=== PATIENT | female | born 1990 | race Caucasian/White ===

== ENCOUNTER 2017-04-22 15:50 | Outpatient (CLI) | payer BC ==
[2017-06-17] MEDS ORDERED: PRENATAL VITAM1 EAC6 PO (17:14)
[2017-06-17] MEDS ORDERED: MOTRIN-DPS800 MG PO (17:14)
[2017-06-17] MEDS ORDERED: TYLENOL EXTRA500 M1 PO (17:15)
[2017-06-17] MEDS ORDERED: NIPPLECREAM TP (17:15)
== END 2017-04-22 17:00 | disposition home or self-care (01) ==
LOC: BC 15:50 → 2LDRP 15:50 → BC 17:00
DX: O99.89 Other specified diseases and conditions complicating pregnancy, childbirth and the puerperium (principal); M54.9 Dorsalgia, unspecified; Z3A.32 32 weeks gestation of pregnancy